=== PATIENT | female | born 1945 | race African-American/Black ===

== ENCOUNTER 2018-08-18 09:31 | Inpatient (IN) | payer OTHER ==
[~2018-08-18] VITALS: Ht 160 cm; Wt 83.2 kg
[2018-08-18 09:33] VITALS: BP 178/72
[2018-08-18] MEDS ORDERED: ZOVIRAX400 MG PO (09:42)
[2018-08-18] MEDS ORDERED: ASPIR 8181 MG PO (09:42)
[2018-08-18] MEDS ORDERED: TYLENOL EXTRA500 MG PO (09:42)
[2018-08-18 09:43] LABS: HEMATOCRIT 35.3 % (37.0-47.0); HEMOGLOBIN 11.4 gm/dL (12.0-15.0); MCH 25.8 pg (26.0-34.0); MCHC 32.4 g/dL (28.0-37.0); MCV 79.7 fL (80.0-100.0); PLATELET COUNT 175 thou/uL (150-400); RBC 4.43 mil/uL (4.20-5.00); RDW 20.8 % (10.5-14.5); WBC 4.4 thou/uL (4.0-11.0)
[2018-08-18] MEDS ORDERED: TUMS PO (09:43)
[2018-08-18] MEDS ORDERED: XANAX 0.5 MG0.5 MG PO (09:43)
[2018-08-18] MEDS ORDERED: KEFLEX500 M1 PO (09:43)
[2018-08-18] MEDS ORDERED: PULMICORT0.5 MG/22 INH (09:43)
[2018-08-18] MEDS ORDERED: VITAMIN D3400 UNIT PO (09:44)
[2018-08-18] MEDS ORDERED: CARDIZEM CD240 MG PO (09:44)
[2018-08-18] MEDS ORDERED: ZETIA10 MG PO (09:45)
[2018-08-18] MEDS ORDERED: COLACE100 MG PO (09:45)
[2018-08-18] MEDS ORDERED: NEXIUM40 MG PO (09:45)
[2018-08-18] MEDS ORDERED: ALLER-FEX180 MG PO (09:45)
[2018-08-18] MEDS ORDERED: HYDRALAZINE 5050 MG PO (09:46)
[2018-08-18] MEDS ORDERED: NORCO 5-325 TA1 EACH PO (09:46)
[2018-08-18] MEDS ORDERED: INCRUSE ELLI62.5 MCG INH (09:47)
[2018-08-18 09:50] LABS: BE(vivo) -2.3 mmol/L (-2 to +3); HCO3 21.5 mmol/L (22.0-26.0); PO2 99.1 mmHg (80.0-100.0); pH 7.419 (7.360-7.450); sO2 97.7 % (92.0-98.0)
[2018-08-18 09:56] LABS: CALCIUM 8.7 mg/dL (8.5-10.1); CREATININE 1.1 mg/dL (0.6-1.0); POTASSIUM 3.6 mmol/L (3.5-5.1)
[2018-08-18 10:10] LABS: ALBUMIN 3.6 g/dL (3.4-5.0); TOTAL BILIRUBIN 0.9 mg/dL (<0.1-1.0); TOTAL PROTEIN 7.9 g/dL (6.4-8.2); TROPONIN-I 0.19 ng/mL (<0.06)
[2018-08-18 10:56] LABS: PLATELET ESTIMATE NORMAL
[2018-08-18 10:57] LABS: ANISOCYTOSIS 1+
[2018-08-18] MEDS ORDERED: SYNTHROID88 MCG PO (11:23)
[2018-08-18] MEDS ORDERED: LETROZOLE2.5 MG PO (11:23)
[2018-08-18] MEDS ORDERED: LISINOPRIL2.5 MG PO (11:23)
[2018-08-18] MEDS ORDERED: GLUCOPHAGE XR500 MG PO (11:23)
[2018-08-18] MEDS ORDERED: MAGOX 400400 MG PO (11:23)
[2018-08-18] MEDS ORDERED: MS CONTIN15 MG PO (11:24)
[2018-08-18] MEDS ORDERED: SINGULAIR 10 MG10 M1 PO (11:24)
[2018-08-18] MEDS ORDERED: ONDANSETRON HCL4 M2 PO (11:25)
[2018-08-18] MEDS ORDERED: POTASSIUM20 PO (11:27)
[2018-08-18] MEDS ORDERED: ALDACTAZIDE 251 EAC1 PO (11:28)
[2018-08-18] MEDS ORDERED: JANUVIA100 MG PO (13:30)
[2018-08-18] MEDS ORDERED: REVLIMID15 MG PO (13:30)
[2018-08-18] MEDS ORDERED: PERIOGARD473 ML SWISH&SPIT (13:48)
[2018-08-18] MEDS ORDERED: XGEVA120 MG/1.7 SUBQ (13:49)
[2018-08-18] MEDS ORDERED: PROAIR HFA8.5 GM INH (13:51)
[2018-08-18 13:55] VITALS: BP 155/77
--- NOTE | 2018-08-18 14:10 | 2DMMODE ---
[facility] [place] [address] 2 D/M-MODE ECHOCARDIOGRAM Name: JAY CORTES Room #: 170-8 ADM IN M.R.#: [id number] ������������� Admission: 08/18/18 ������������� Attend Phys: Gopi Aguilar MD Discharge: ��� ������������� ��� Date of : 41 Date of Service: 08/18/18 1410 �� Report #: [id number] �������� ��������������������������������������������[id number] THIS REPORT FOR: //name// APPROVED REPORT Study performed: 08/18/2018 13:13:31 EXAM: Comprehensive 2D, Doppler, and color-flow Echocardiogram Patient Location: ER Room #: 8 Status: routine BSA: 1.93 HR: 96 bpm BP: 176/81 mmHg Rhythm: NSR Other Information Study Quality: Adequate Indications Congestive Heart Failure COPD Diabetes Hypertension/HDD 2D Dimensions IVC: 21.00 mm Volumes Left Atrial Volume (Systole) Single Plane 4CH: 22.10 mL Single Plane 2CH: 25.23 mL LA ESV Index: 14.00 mL/m2 Aortic Valve AoV Peak Gregory.: 1.53 m/s AO Peak Gr.: 9.30 mmHg LVOT Max P.62 mmHg LVOT Max V: 1.08 m/s Mitral Valve E/A Ratio: 0.7 MV Decel. Time: 376.23 ms MV E Max Gregory.: 0.75 m/s MV A Gregory.: 1.04 m/s MV PHT: 109.11 ms IVRT: 106.11 ms [facility] [address] [place] [address] 2 D/M-MODE ECHOCARDIOGRAM Name: JAY CORTES Room #: 170-8 ADM IN M.R.#: [id number] ������������� Admission: 08/18/18 ������������� Attend Phys: Gopi Aguilar MD Discharge: ��� ������������� ��� Date of : 41 Date of Service: 08/18/18 1410 �� Report #: [id number] �������� ��������������������������������������������[id number] Pulmonary Valve PV Peak Gregory.: 1.30 m/s PV Peak Gr.: 6.81 mmHg Pulmonary Vein P Vein S: 0.52 m/s P Vein A: 0.28 m/s P Vein D: 0.28 m/s P Vein A Dur.: 110.7 msec P Vein S/D Ratio: 1.86 Tricuspid Valve TR Peak Gregory.: 3.50 m/s TR Peak Gr.: 49.07 mmHg PA Pressure: 59.00 mmHg Left Ventricle The left ventricle is normal size. There is normal LV segmental wall motion. There is normal left ventricular wall thickness. The left ventricular systolic function is normal. The left ventricular ejection fraction is within the normal range. LVEF is 60-65%. Mild diastolic dysfunction is present (impaired relaxation pattern). Right Ventricle The right ventricle is normal size. The right ventricular systolic function is normal. Atria The left atrium size is normal. Right atrium is at the upper limits of normal. Aortic Valve The aortic valve is normal in structure. No aortic regurgitation is present. There is no aortic valvular stenosis. Mitral Valve The mitral valve is normal in structure. There is no mitral valve regurgitation noted. No evidence of mitral valve stenosis. Tricuspid Valve The tricuspid valve is normal in structure. There is mild tricuspid regurgitation. Estimated PAP 55 mmHg. There is moderate pulmonary hypertension. Pulmonic Valve The pulmonary valve is normal in structure. There is no pulmonic valvular regurgitation. [facility] [place] [address] 2 D/M-MODE ECHOCARDIOGRAM Name: JAY CORTES Room #: 170-8 ADM IN M.R.#: [id number] ������������� Admission: 08/18/18 ������������� Attend Phys: Gopi Aguilar MD Discharge: ��� ������������� ��� Date of : 41 Date of Service: 08/18/18 1410 �� Report #: [id number] �������� ��������������������������������������������[id number] Great Vessels The aortic root is normal in size. IVC is dilated and collapses >50% with inspiration. Pericardium There is no pericardial effusion. <Conclusion> The left ventricular systolic function is normal. There is normal LV segmental wall motion. LVEF is 60-65%. Mild diastolic dysfunction is present The aortic valve is normal in structure. No aortic regurgitation is present. The mitral valve is normal in structure. No mitral valve regurgitation noted. There is mild tricuspid regurgitation. Estimated pulmonary artery pressure of 55 mmHg. There is no pericardial effusion. ��������������������������������������������� <ELECTRONICALLY SIGNED> ���������������������������������������� By: Denzel Musa MD, [facility] ��������������������������������������������� 08/18/18 1410 1410 1410 Denzel Musa MD, [facility] /INF
[2018-08-18 14:23] VITALS: BP 126/78
[2018-08-18 15:29] VITALS: BP 151/78
--- NOTE | 2018-08-18 17:23 | EKG ---
[place] [address] [employer] [facility] [place] [address] ELECTROCARDIOGRAM REPORT Name: JAY CORTES Room #: 354-P ADM IN M.R.#: [id number] ������������������ Admission: 08/18/18 ������������������ Attend Phys: Gopi Aguilar MD Discharge: ������������������ Date of : 41 Report #: [id number] ����������������������������������������������������������������� [id number] THIS REPORT FOR: //name// [facility] ED Test Date: 2018-08-18 Test Time: 09:56:57 Pat Name: JAY CORTES Department: Room: 354 Gender: F [employer] Instructor: ZULMA : 1945 Requested By: Anahi Mcpherson Order Number: [id number] MD: Denzel Musa Measurements Intervals [place] Rate: 103 P: 52 PA: 149 QRS: 48 QRSD: 80 T: QT: 395 QTc: 517 Interpretive Statements Sinus tachycardia Nonspecific ST and T wave abnormality Prolonged QT interval Baseline wander in lead(s) V1 No previous ECG available for comparison Electronically Signed On 08-18-2018 17:23:07 CDT by Denzel Musa [email or web address] ��������������������������������������������� <ELECTRONICALLY SIGNED> ���������������������������������������� By: Denzel Musa MD, [facility] ��������������������������������������������� 08/18/18 1723 5 Denzel Musa MD, [facility] /EPI
[2018-08-18 17:34] LABS: BE(vivo) 0.6 mmol/L (-2 to +3); HCO3 24.5 mmol/L (22.0-26.0); pH 7.439 (7.360-7.450); sO2 97.4 % (92.0-98.0)
[2018-08-18 20:10] VITALS: BP 173/80
[2018-08-19 04:40] VITALS: BP 150/76
[2018-08-19 05:42] LABS: HEMATOCRIT 35.1 % (37.0-47.0); HEMOGLOBIN 11.1 gm/dL (12.0-15.0); MCH 25.3 pg (26.0-34.0); MCHC 31.6 g/dL (28.0-37.0); RBC 4.39 mil/uL (4.20-5.00); RDW 20.4 % (10.5-14.5); WBC 4.2 thou/uL (4.0-11.0)
[2018-08-19 05:53] LABS: CALCIUM 8.2 mg/dL (8.5-10.1); CREATININE 1.4 mg/dL (0.6-1.0); MAGNESIUM 1.7 mg/dL (1.8-2.4); POTASSIUM 4.1 mmol/L (3.5-5.1)
[2018-08-19 07:39] VITALS: BP 138/75
--- NOTE | 2018-08-19 08:13 | EKG ---
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 Out: IRIS : 1945 Requested By: Denzel Musa Order Number: [id number] MD: Jani Maldonado Measurements Intervals [place] Rate: 87 P: 60 DE: 132 QRS: 46 QRSD: 92 T: 64 QT: 411 QTc: 495 Interpretive Statements Sinus rhythm Borderline ST depression, anterolateral leads Baseline wander in lead(s) V4 Compared to ECG 08/18/2018 09:56:57 Sinus tachycardia no longer present ST (T wave) deviation still present Electronically Signed On 08-19-2018 8:12:52 CDT by Jani Maldonado [email or web address] ��������������������������������������������� <ELECTRONICALLY SIGNED> ���������������������������������������� By: Jani Maldonado MD ��������������������������������������������� 08/19/1812 5 5 Jani Maldonado MD /EPI
[2018-08-19 11:21] VITALS: BP 115/65
[2018-08-19 16:05] VITALS: BP 115/64
[2018-08-19 20:00] VITALS: BP 129/63
[2018-08-20 04:00] VITALS: BP 132/56
[2018-08-20 07:40] VITALS: BP 109/56
[2018-08-20 11:23] VITALS: BP 138/55
[2018-08-20 12:29] LABS: CALCIUM 8.8 mg/dL (8.5-10.1); CREATININE 1.4 mg/dL (0.6-1.0); POTASSIUM 3.9 mmol/L (3.5-5.1)
--- NOTE | 2018-08-20 15:28 | HC ---
[facility] [place] [address] CONSULTATION Name: JAY CORTES Room #: 354-P ADM IN M.R.#: [id number] Admission: 08/18/18 ������������������ Attend Phys: Gopi Aguilar MD Discharge: ������������������ Date of : 41 Report #: [id number] THIS REPORT FOR: //name// CC: Gopi Vargas DATE OF SERVICE: 08/19/2018 REFERRAL PHYSICIAN: Dr. Aguilar. REASON FOR REFERRAL: Dyspnea. HISTORY OF PRESENT ILLNESS: The patient is a 73-year-old female with history of COPD, presents to the ED with progressive dyspnea. A pulmonary consultation was requested. The patient states that she is normally followed by Dr. Roc Worrell for COPD. She is normally on 3 liters of O2 chronically. She normally goes to [facility] for her care. Because of the acuity of illness, she was brought to the [facility]. She was in her usual state of health until about 5 days prior to presentation. She noticed increasing dyspnea, nonproductive cough. With worsening symptoms, she called 911. She also states that she has been undergoing treatment for breast cancer, undergoing radiation therapy along with previous breast cancer. She also is being followed for multiple myeloma. Otherwise, denies any recent chest pain, hemoptysis, nausea, vomiting, diarrhea. PAST MEDICAL HISTORY: As mentioned above including COPD, breast cancer on the right and undergoing chemo and radiation therapy, history of multiple myeloma, history of heart failure, hypertension, diabetes mellitus, history of tobacco use, having stopped smoking few years ago. PAST SURGICAL HISTORY: Unremarkable. ALLERGIES: MULTIPLE INCLUDING AMLODIPINE, ASPIRIN, LIPITOR, DICLOFENAC, DOXYCYCLINE, IBUPROFEN, LATEX, LEVOFLOXACIN, PAMIDRONATE DISODIUM, PENICILLIN, ACTOS, BACTRIM, reaction not specified. HOME MEDICATIONS: Reviewed. This include aspirin, despite allergy notice; nebulized Pulmicort, hydralazine, mag oxide, metformin, MS Contin, Zofran, hydrochlorothiazide, Revlimid, Januvia, PerioGard, Xgeva, ProAir MDI, Tylenol, Zovirax, Xanax, Cardizem, Nexium, Zetia, fexofenadine, hydrocodone, Incruse Ellipta, letrozole, Synthroid, Zestril, Singulair, K-Dur. [address] [address] CONSULTATION Name: JAY CORTES Room #: 354-P [facility] IN M.R.#: [id number] Admission: 08/18/18 ������������������ Attend Phys: Gopi Aguilar MD Discharge: ������������������ Date of : 41 Report #: [id number] FAMILY HISTORY: Noncontributory. SOCIAL HISTORY: The patient has smoked in the past, but quit more than a year ago. REVIEW OF SYSTEMS: As mentioned above, otherwise 10-point system review negative. PHYSICAL EXAMINATION: GENERAL: She is awake, alert, appears mildly dyspneic, otherwise in no distress. VITAL SIGNS: Temperature is 98.4 degrees Fahrenheit, pulse is 80, respiratory rate is 18, blood pressure 115/65 mmHg, saturation is 98%. HEENT: Normocephalic and atraumatic. NECK: Supple, without lymphadenopathy or thyromegaly. CHEST: Breath sounds of good bilaterally with mild expiratory wheezes. CARDIOVASCULAR: Normal S1, S2. No murmurs or gallop. There is no JVD. There is no carotid bruit. Pulses are 2+/4+ bilaterally. ABDOMEN: Soft, nontender, no organomegaly or masses felt. GENITOURINARY: Deferred. RECTAL: Deferred. EXTREMITIES: There is no edema, cyanosis or clubbing. LABORATORY DATA: Chest x-ray shows mild interstitial infiltrates, no effusion seen. Procalcitonin level of 0.6. Echocardiogram shows normal LV function, normal ejection fraction. Pulmonary artery pressure measuring 55 mmHg, otherwise unremarkable. Influenza A and B swab is negative. Doppler ultrasound of the lower extremities was negative for DVT. Electrolytes normal except for creatinine 1.4. Sodium 138, potassium 4.1, chloride 102, CO2 24, BUN is 23. Liver enzymes unremarkable. WBC 4000, hemoglobin 11.1, arterial blood gas revealed pH 7.43, pCO2 at 37, pO2 of 94 on FiO2 40%. IMPRESSION: 1. Progressive dyspnea in this 73-year-old female. She has a history of chronic obstructive pulmonary disease along with history of heart failure. Chest x-ray shows mild increase in interstitial markings. Etiology likely related to exacerbation of chronic obstructive pulmonary disease. Heart failure is felt to be less likely. 2. Chronic obstructive pulmonary disease exacerbation, severity unknown. 3. History of breast cancer, status post chemotherapy. She apparently had recent radiation therapy. We need to consider possible radiation-induced lung injury as a possible cause for dyspnea. 4. Pulmonary hypertension due to pulmonary impairment, group 3. 5. Hypertension. 6. Diabetes mellitus. [facility] [address] [place] [address] CONSULTATION Name: JAY CORTES Room #: 033-P ADM IN M.R.#: [id number] Admission: 08/18/18 ������������������ Attend Phys: Gopi Aguilar MD Discharge: ������������������ Date of : 41 Report #: [id number] 7. Hypothyroidism. RECOMMENDATION: Would suggest bronchodilators, broad-spectrum antibiotics along with corticosteroids. Wean O2 for saturation 90%. DVT and GI prophylaxis recommended. Thank you for this consultation. ��������������������������������������������� <ELECTRONICALLY SIGNED> ���������������������������������������� By: Zachary Bro MD ��������������������������������������������� 08/20/18 1528 [id number] [id number] Zachary Bro MD /nt
[2018-08-20 15:48] VITALS: BP 127/57
--- NOTE | 2018-08-20 19:43 | HC ---
[facility] [place] [address] CONSULTATION Name: JAY CORTES Room #: 354-P [facility] IN M.R.#: [id number] Admission: 08/18/18 ������������������ Attend Phys: Gopi Aguilar MD Discharge: ������������������ Date of : 41 Report #: [id number] THIS REPORT FOR: //name// CC: Gopi Vargas DATE OF SERVICE: 08/19/2018 INFECTIOUS DISEASES CONSULTATION REASON FOR CONSULTATION: I was asked to evaluate concerning lower respiratory tract infection in the setting of multiple myeloma. HISTORY OF PRESENT ILLNESS: The patient is a 73-year-old admitted on 08/18/2018 with progressive shortness of breath over 1 week. Although initial evaluation reports that she was having fever and chills at home, she denies such. She has had minimal cough. She has had no significant sputum production. She just noted increased peripheral edema along with shortness of breath. She remains on chemotherapy for multiple myeloma, which she states is in remission. She recently completed a course of radiation for left breast cancer. She is unclear as to the state of her disease at this point in time. She has had no travel. She denies any other HIV risk factors. Overall, she states feeling better today than prior to her admission. The maximum temperature here has been 99.9 degrees. She has been treated with doxycycline. ALLERGIES: THE PATIENT REPORTS MULTIPLE DRUG ALLERGIES INCLUDING SULFA, LEVAQUIN, PENICILLIN, DOXYCYCLINE, ALTHOUGH THE PATIENT IS TOLERATING DOXYCYCLINE AT THIS TIME, PREVIOUSLY REPORTED LOOSE STOOLS. SHE DOES TOLERATE CEFTRIAXONE. ALSO, ALLERGIC TO PAMIDRONATE, LATEX, ASPIRIN, ATORVASTATIN, DICLOFENAC, IBUPROFEN, ACTOS, AMLODIPINE. PAST MEDICAL HISTORY: Multiple myeloma, breast cancer, diabetes, hypertension, COPD, obstructive sleep apnea. FAMILY HISTORY: Noncontributory. SOCIAL HISTORY: Past smoker, no significant alcohol intake. REVIEW OF SYSTEMS: Ten-point review was negative other than what has been described above. PHYSICAL EXAMINATION: VITAL SIGNS: She is afebrile, hemodynamically stable. She is alert and cooperative and pleasant, in no acute distress. She is on oxygen at 4 liters per nasal cannula. She was obese. GENERAL: She was lying essentially flat in bed. [facility] [address] [place] [address] CONSULTATION Name: JAY CORTES Room #: 354-P [facility] IN M.R.#: [id number] Admission: 08/18/18 ������������������ Attend Phys: Gopi Aguilar MD Discharge: ������������������ Date of : 43 Report #: [id number] HEENT: Eyes without scleral icterus. Mouth without mucositis. NECK: Supple, with no thyromegaly or mass. SKIN: Without rash or decubitus. No palpable adenopathy. LUNGS: Few crackles in the bases bilaterally, no consolidation. HEART: Regular, without murmur, gallop or rub. ABDOMEN: Obese, soft and nontender with no hepatosplenomegaly or mass appreciated. GENITAL: Not performed. RECTAL: Not performed. EXTREMITIES: Obese. She had no cyanosis, clubbing or edema in the upper extremities, but in the lower extremities, she had 1+ edema in the lower legs bilaterally. NEUROLOGIC: Cranial nerves were intact and strength in her upper and lower extremities was normal with a normal sensation to touch. LABORATORY STUDIES: Blood cultures are negative. Creatinine is 1.4, alkaline phosphatase 139. Liver function test normal. Echocardiogram showed 60-65% EF. Procalcitonin was 0.6. BNP 1459. Chest x-ray with bibasilar atelectasis in the right. IMPRESSION: A 73-year-old, in remission on maintenance therapy of multiple myeloma, with progressive shortness of breath, suspecting chronic obstructive pulmonary disease exacerbation with a component of congestive heart failure. Also, consider viral respiratory tract infection or possible atypical bronchitis, but cough has not been a major factor in this setting. She is relatively immunosuppressed on her current treatment. She does have multiple drug allergies and intolerances. RECOMMENDATION: We will obtain a viral respiratory panel. Start Tamiflu and continue with doxycycline. Continue with treatment for congestive heart failure and chronic obstructive pulmonary disease exacerbation. ��������������������������������������������� <ELECTRONICALLY SIGNED> ���������������������������������������� By: Felipe Esquivel MD ��������������������������������������������� 08/20/18 1943 [id number] Felipe Esquivel MD /nt
[2018-08-20 20:00] VITALS: BP 139/55
[2018-08-21 04:00] VITALS: BP 136/66
[2018-08-21 04:42] LABS: CALCIUM 8.9 mg/dL (8.5-10.1); CREATININE 1.3 mg/dL (0.6-1.0); POTASSIUM 4.7 mmol/L (3.5-5.1)
[2018-08-21 07:25] VITALS: BP 153/62
[2018-08-21] MEDS ORDERED: OSELB75 PO (11:30)
[2018-08-21 11:35] VITALS: BP 143/72
[2018-08-21] MEDS ORDERED: DOXYCYCLINE 10100 M1 PO (11:47)
[2018-08-23 10:09] LABS: ADENOVIRUS Negative (Negative); INFLUENZA A Negative (Negative); INFLUENZA B Negative (Negative); METAPNEUMOVIRUS Negative (Negative); PARAINFLUENZA 1 Negative (Negative); PARAINFLUENZA 2 Negative (Negative); PARAINFLUENZA 3 Positive (Negative); RHINOVIRUS Negative (Negative); RSV A Negative (Negative); RSV B Negative (Negative)
== END 2018-08-21 16:25 | DRG 871 ==
LOC: ER 09:31 → EROBS 11:23 → 3W 11:23 → ENTRNSPT 08-21 16:11 → 3W 08-21 16:25
PROVIDERS: Internal Medicine; Internal Medicine Pulmonary Disease; Specialist; Student in an Organized Health Care Education/Training Program; ADMIT Hospitalist
PROC: 5A09357 Assistance with Respiratory Ventilation, Less than 24 Consecutive Hours, Continuous Positive Airway Pressure (ICD-10-PCS; principal; 2018-08-18)
PROC: 5A09357 Assistance with Respiratory Ventilation, Less than 24 Consecutive Hours, Continuous Positive Airway Pressure (ICD-10-PCS; 2018-08-19)
PROC: 5A09357 Assistance with Respiratory Ventilation, Less than 24 Consecutive Hours, Continuous Positive Airway Pressure (ICD-10-PCS; 2018-08-20)
DX: A41.9 Sepsis, unspecified organism (principal); J96.21 Acute and chronic respiratory failure with hypoxia; I50.33 Acute on chronic diastolic (congestive) heart failure; J44.1 Chronic obstructive pulmonary disease with (acute) exacerbation; C90.01 Multiple myeloma in remission; J44.0 Chronic obstructive pulmonary disease with (acute) lower respiratory infection; E87.70 Fluid overload, unspecified; E11.9 Type 2 diabetes mellitus without complications; G47.33 Obstructive sleep apnea (adult) (pediatric); I27.20 Pulmonary hypertension, unspecified; I11.0 Hypertensive heart disease with heart failure; E03.9 Hypothyroidism, unspecified; J20.9 Acute bronchitis, unspecified; Z60.2 Problems related to living alone; Z88.0 Allergy status to penicillin; Z88.2 Allergy status to sulfonamides; Z88.8 Allergy status to other drugs, medicaments and biological substances; Z88.6 Allergy status to analgesic agent; Z88.1 Allergy status to other antibiotic agents; Z91.040 Latex allergy status; Z87.891 Personal history of nicotine dependence; Z85.3 Personal history of malignant neoplasm of breast; Z92.21 Personal history of antineoplastic chemotherapy
CPT/HCPCS: 10879

== ENCOUNTER 2018-08-21 12:00 | Inpatient (IN) | payer OTHER ==
[~2018-08-21] VITALS: Ht 154.9 cm; Wt 85.3 kg
--- NOTE | ~2018-08-21 | PLAN ---
[facility] [place] [address] REHAB UNIT PLAN OF CARE Name: JAY CORTES Room #: 506-1 ADM IN M.R.#: [id number] Admission: 08/21/18 ������������������ Attend Phys: Radames Solitario MD Discharge: ������������������ Date of : 43 Report #: [id number] THIS REPORT FOR: //name// CC: Radames Vargas DATE OF SERVICE: 08/24/2018 OVERALL PLAN OF CARE The overall plan of care is based on the preadmission screen, post-admission physician evaluation and information garnered from therapy assessments. 1. Estimated length of stay is probably going to be 10 days to 2 weeks. We will team with the rehabilitation team tomorrow and further assess. 2. Medical prognosis is reasonably good. 3. Anticipated interventions includes the interdisciplinary acute inpatient rehabilitation program with PT and OT, rehab nursing assisting regarding medication management, skin care prophylaxis, bowel and bladder issues and nursing education. territory manager will be assisting as well as the rehabilitation team and the wine consultant physicians. 4. Anticipated functional outcomes would be for the patient to become modified independent with transfers, mobility and ADLs at a walker level, so that she can return back to the home setting. 5. Discharge destination would be back to her independent living apartment where she does have a caregiver or at least an syrup mixer assistant that helps with IADLs and meal prep 2 times a week. She may need more initial assistance. 6. Expected therapy by discipline includes PT and OT 1-1/2 hours per day each five days a week throughout the duration of the acute inpatient rehabilitation stay. ��������������������������������������������� ���������������������������������������� By: ��������������������������������������������� [id number] Radames Solitario MD /LING
--- NOTE | ~2018-08-21 | H ---
[facility] [place] [address] HISTORY AND PHYSICAL Name: JAY CORTES Room #: 506-1 ADM IN M.R.#: [id number] Admission: 08/21/18 ������������������ Attend Phys: Radames Solitario MD Discharge: ������������������ Date of : 41 Report #: [id number] THIS REPORT FOR: //name// CC: Radames Vargas DATE OF SERVICE: 08/21/2018 HISTORY AND PHYSICAL/POST ADMISSION PHYSICIAN EVALUATION: HISTORY OF PRESENT ILLNESS: The patient is a 73-year-old white female who was originally admitted to [facility] on 08/18/2018 and increased shortness of breath, diagnosed with acute respiratory failure, acute exacerbation of COPD, acute exacerbation of congestive heart failure. She did have a COPD exacerbation with bronchitis. She has a history of multiple myeloma, on maintenance chemotherapy, congestive heart failure. The patient had a flu swab, which was negative that is being treated with Tamiflu prophylactically and was placed on IV steroids and IV doxycycline. She is followed closely by Infectious Disease. She is noted to have a significant decline in her overall functional mobility and has been admitted now for acute in-hospital inpatient rehabilitation. PAST MEDICAL HISTORY: Includes multiple myeloma, history of diabetes, hypertension and COPD. She has had breast cancer, status post radiation. MEDICATIONS: Please see the full medication listing. This includes vitamins, herbals, and supplements. ALLERGIES: She has multiple allergies ____. 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 SOCIAL HISTORY: Lives in an independent living apartment with a caregiver 2-1/2 hours 2 times a week to assist with cleaning and laundry. She was independent with ADLs and simple meal prep. She has no stairs. She has rollator walker. Her last fall was 07/27. She wears nasal cannula O2 at home. She has an involved son and they are looking into assisted living options. HABITS: Past tobacco abuse, quit greater than a year ago. No history of alcohol abuse or recreational drug usage. REVIEW OF SYSTEMS: Did not offer any current complaints of chest pain, shortness of breath, abdominal discomfort. No complaints of headache. No fever or chills. No bowel or bladder changes. No focal extremity pain complaints. Complains of generalized weakness. PHYSICAL EXAMINATION: [facility] [address] [place] [address] HISTORY AND PHYSICAL Name: JAY CORTES Room #: 506-1 ADM IN M.R.#: [id number] Admission: 08/21/18 ������������������ Attend Phys: Radames Solitario MD Discharge: ������������������ Date of : 41 Report #: [id number] GENERAL: She is a pleasant 73-year-old female, in no obvious distress. VITAL SIGNS: Last recorded temperature 98.4, pulse 74, respirations 18, blood pressure 148/63. NEUROLOGIC: The patient is alert, follows commands without difficulty. She is on 2 liters nasal cannula. HEENT: Facies are symmetric. CHEST: Some diffuse decreased breath sounds throughout. CARDIOVASCULAR: Sounded regular rate and rhythm. ABDOMEN: Bowel sounds positive, nontender. GENITOURINARY AND RECTAL: Deferred. She does have functional range of motion of both upper extremities. Strength is grade 3+ to 4-/5. DTRs are trace to 1. LOWER EXTREMITIES: No focal calf swelling, functional range of motion with strength grade 3+ to 4-/5. EXTREMITIES: She has trace pedal edema, supervision for basic bed mobility. ASSESSMENT: This is a 73-year-old white female with the following problem list: 1. Cardiopulmonary rehabilitation. 2. Acute exacerbation of congestive heart failure. 3. Acute respiratory failure. 4. Acute exacerbation of chronic obstructive pulmonary disease. 5. Breast cancer. 6. Multiple myeloma. 7. Hypertension. 8. Type 2 diabetes mellitus. 9. Hypothyroidism. PLAN: The patient is admitted for acute in-hospital inpatient rehabilitation. From a postadmission physician evaluation perspective, there are no relevant changes since the preadmission screening. Please see the above review of prior and current medical and functional conditions, comorbidities. Please see the patient's previous and current functional status. As far as risk of complications, the patient has multiple medical comorbidities as noted above. Initial plan of care involves the interdisciplinary acute inpatient rehabilitation program, goal of maximizing the patient's functional independence, so she can hopefully return back to her prior living situation. Measurable functional goals would be for the patient to become modified independent with transfers, mobility, ADLs, so she can hopefully return back to her prior living situation. Prognosis is reasonably good with estimated length of stay probably 10 days to 2 weeks. Potential barriers would include her multiple medical comorbidities and decreased functional status. The patient meets diagnostic criteria for an acute in-hospital inpatient rehabilitation stay. She meets medical necessity criteria. We will have the [address] [address] HISTORY AND PHYSICAL Name: JAY CORTES Room #: 506-1 ADM IN M.R.#: [id number] Admission: 08/21/18 ������������������ Attend Phys: Radames Solitario MD Discharge: ������������������ Date of : 41 Report #: [id number] [facility] consultant physicians involved. She does have tolerance for therapies and has appropriate discharge goals back to the home setting. ��������������������������������������������� ���������������������������������������� By: ��������������������������������������������� [id number] Radames Solitario MD /nt
[~2018-08-21 12:00] MED LIST: ALDACTAZIDE 251 EAC1 PO; ALLER-FEX180 MG PO; ASPIR 8181 MG PO; CARDIZEM CD240 MG PO; COLACE100 MG PO; DOXYCYCLINE 10100 M1 PO; GLUCOPHAGE XR500 MG PO; HYDRALAZINE 5050 MG PO; INCRUSE ELLI62.5 MCG INH; JANUVIA100 MG PO; KEFLEX500 M1 PO; LETROZOLE2.5 MG PO; LISINOPRIL2.5 MG PO; MAGOX 400400 MG PO; MS CONTIN15 MG PO; NEXIUM40 MG PO; NORCO 5-325 TA1 EACH PO; ONDANSETRON HCL4 M2 PO; OSELB75 PO; PERIOGARD473 ML SWISH&SPIT; POTASSIUM20 PO; PROAIR HFA8.5 GM INH; PULMICORT0.5 MG/22 INH; REVLIMID15 MG PO; SINGULAIR 10 MG10 M1 PO; SYNTHROID88 MCG PO; TUMS PO; TYLENOL EXTRA500 MG PO; VITAMIN D3400 UNIT PO; XANAX 0.5 MG0.5 MG PO; XGEVA120 MG/1.7 SUBQ; ZETIA10 MG PO; ZOVIRAX400 MG PO
--- NOTE | 2018-08-21 19:18 | NUR ---
ASSUMED CARE AT 1600, NEW ADMIT FROM 3W. ADMISSION AND SHIFT ASSESSMENT DONE. MED REC ABD ALLERGIES DONE. ON 2L NASAL CANULA. FALL PRECAUTIONS IN PLACE, BED AND CHAIR ALARM ON. LAST BM 08/20. WILL CONTINUE TO ASSESS AND ASSIST WITH ADLs NEEDED.
[2018-08-21 19:55] VITALS: BP 148/63
[2018-08-22 04:25] LABS: HEMATOCRIT 29.4 % (37.0-47.0); HEMOGLOBIN 9.5 gm/dL (12.0-15.0); MCH 25.9 pg (26.0-34.0); MCHC 32.4 g/dL (28.0-37.0); MCV 79.9 fL (80.0-100.0); RBC 3.68 mil/uL (4.20-5.00); RDW 20.7 % (10.5-14.5); WBC 3.8 thou/uL (4.0-11.0)
--- NOTE | 2018-08-22 04:27 | NUR ---
ASSUMED CARE OF PT AT 1915. PT ALERT AND ORIENTED X4. DENIES PAIN OR NAUSEA, C/O DYPSNEA WITH EXERTION. BIPAP PLACED AT HS BY RESP THERAPY. CONTINUOUS SAT MONITOR IN PLACE. HAS APPEARED TO BE SLEEPING WHEN CHECKED ON HOURLY ROUNDS. BED ALARM ON.
[2018-08-22 04:37] LABS: CALCIUM 8.7 mg/dL (8.5-10.1); CREATININE 1.2 mg/dL (0.6-1.0); POTASSIUM 4.9 mmol/L (3.5-5.1)
[2018-08-22 07:30] VITALS: BP 151/55
[2018-08-22 15:26] VITALS: BP 128/59
--- NOTE | 2018-08-22 15:49 | NUR ---
ASSUMED CARE OF PT AT 0715. REPORTS SLEPT GOOD. PT ALERT AND ORIENTED X4. ABLE TO VOICE HER NEEDS. DENIES PAIN OR NAUSEA, C/O DYPSNEA WITH EXERTION. BIPAP AT NIGHT. SAT 98% ON 2L. REASSESSMENT PER CHART. LUNG SOUNDS COARSE, CONTINUE TO BE ON ABT AND BREATHING TX. SKIN DRY AND INTACT. HAS 1+ EDEMA BILATERAL FEET. HAD BM NOW. ENCOURAGED PT TO DO DEEP BREATHING. TAKES MEDS WHOLE.UP WITH CGA WITH A WALKER/GB/CGA. UP TO DINNING ROOM FOR MEALS. HAS GOOD SPIRIT AND SELF MOTIVATION. OFFERED SUPPORTIVE CARE. HER GOALS TO GET BETTER. FALL PRECAUTION IN PLACE, CALL LIGHT WITHIN REACH. CONTINUE TO MONITOR. CHECK FREQUENTLY FOR NEEDS AND SAFETY.
[2018-08-22 21:36] VITALS: BP 132/54
--- NOTE | 2018-08-23 02:15 | NUR ---
assumed care at approx 1900 evening 08/22. pt alert and oriented x4, pleasant and cooperative. pt took hs meds with water tolerating well. pt up to bathroom with 1 assist with walker. 02 at 2l per n/c and pt presently wearing bipap appears to be sleeping soundly with hourly rounding checks. bed alarm on and call light in reach. will continue to monitor.
[2018-08-23 06:30] VITALS: BP 122/44
[2018-08-23 07:20] VITALS: BP 105/51
--- NOTE | 2018-08-24 03:48 | NUR ---
PT AMBULATING TO BATHROOM WITH GAIT BELT, WALKER AND ASSIST X1 AND IS TOLERATING FAIR. DENIES PAIN. RESTING COMFORTABLY. NO NEEDS VOICED. CALL LIGHT WITHIN REACH. WILL CONTINUE TO PROVIDE FREQUENT OBSERVATION.
[2018-08-24 08:30] VITALS: BP 120/40
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
--- NOTE | 2018-08-24 10:40 | NUR ---
ASSUMED CARE OF PT AT 0715. OT ASSISTED PT WITH SHOWER THIS AM. REPORTS SLEPT GOOD. PT ALERT AND ORIENTED X4. ABLE TO VOICE HER NEEDS. DENIES PAIN. VSS SAT 98% ON 2L B/P 126/40, HR 60, ENCOURAGED PT TO DRINK MORE FLUID AND DEEP BREATHING. DENIES COUGH. REASSESSMENT PER CHART. LUNG SOUNDS COARSE, CONTINUE TO BE ON ABT AND BREATHING TX. SKIN DRY AND INTACT. HAS 1+ EDEMA BILATERAL FEET. UP WITH CGA WITH A WALKER/GB/CGA. UP TO DINNING ROOM FOR MEALS. HAS GOOD SPIRIT AND SELF MOTIVATION. OFFERED SUPPORTIVE CARE. HER GOALS TO GET BETTER. PT IS WALKING WITH PHYSICAL THERAPIST NOW FALL PRECAUTION IN PLACE, CALL LIGHT WITHIN REACH. CONTINUE TO MONITOR. CHECK FREQUENTLY FOR NEEDS AND SAFETY. PT WILL START ON HER CHEMO THERAPY MED AGAIN TOMORROW. DISCUSSED PLAN WITH L[facility] AND OBTAIN ORDER FOR HOME MED. WILL CONTINUE TO MONITOR.
[2018-08-24 14:00] VITALS: BP 91/66
[2018-08-24 19:32] VITALS: BP 112/45
--- NOTE | 2018-08-25 04:08 | NUR ---
ASSUMED CARE FROM PREVIOUS SHIFT PT UP SEVERAL TIME TO BATHROOM GAIT STAEADY WITH WALKER , C/O ANKLE AND LEG PAIN TYLENOL PO GIVEN PT RESTE WELL THROUGOUT HOURLY ROUNDS, CPAP ON RESP EASY NON-LARBORED.
[2018-08-25 08:01] VITALS: BP 116/50
--- NOTE | 2018-08-25 11:43 | NUR ---
ASSUMED CARE OF PT AT 0715. REPORTS SLEPT GOOD. PT ALERT AND ORIENTED X4. ABLE TO VOICE HER NEEDS. DENIES PAIN. VSS SAT 98% ON 2L FINISHED HER DOXYCYCLINE, TAMIFLU. REPORT BREATHING IS GETTING BETTER. B/P 115/50, HR 60, ENCOURAGED PT TO DRINK MORE FLUID AND DEEP BREATHING.REASSESSMENT PER CHART. SKIN DRY AND INTACT. HAS 1+ EDEMA BILATERAL FEET. UP WITH CGA WITH A WALKER/GB/CGA. UP TO DINNING ROOM FOR BREAKFAST. HAS GOOD SPIRIT AND SELF MOTIVATION. OFFERED SUPPORTIVE CARE. HER GOALS TO GET BETTER. FALL PRECAUTION IN PLACE, CALL LIGHT WITHIN REACH. CONTINUE TO MONITOR. CHECK FREQUENTLY FOR NEEDS AND SAFETY. WILL CONTINUE TO MONITOR.
--- NOTE | 2018-08-25 12:20 | NUR ---
team meeting, recommendation : dc 22nd home with hh ( pt,ot,nursing).
[2018-08-25 20:00] VITALS: BP 123/70
--- NOTE | 2018-08-26 02:19 | NUR ---
ASSUMED CARE OF PT AT 1915. PT ALERT AND ORIENTED X4. OXYGEN ON AT 2 LITERS BY NASAL CANNULAE, CPAP PLACED WITH CONT SAT MONITOR AT HS. PT DENIES PAIN, NAUSEA OR DYPSNEA. AMBULATES TO BATHROOM WITH STANDBY ASSIST USING GAIT BELT AND WALKER. HAS APPEARED TO BE SLEEPING WHEN CHECKED ON HOURLY ROUNDS. FALL PRECAUTIONS IN PLACE.
[2018-08-26 08:52] VITALS: BP 117/34
--- NOTE | 2018-08-26 09:39 | NUR ---
ASSUMED CARE AT 0700. PATIENT IS ALERT AND ORIENTED X4. PATIENT IS PLEASANT AND COOPERATIVE. PATIENT SANZ'S, CAN PATCHER ARE EQUAL. LUNGS ARE CLEAR AND DEMINISHED WITH OCCASIONAL EXP WHEEZE. PATIENT REMAINS ON RESPIRATORY TX. PATIENT IS ON 02 AT 2L PER N/C. PATIENT IS UP TO DINING ROOM FOR MEALS. FALL AND SAFETY PROTOCOLS IN PLACE. DENIES PAIN AT THIS TIME. PATIENT IS ON SCED PAIN MED Q 12 HOURS FOR HER CANCER. PATIENT RESTARTED ORAL CHEMO TODAY. ABD IS SOFT WITH BSX4. UP TO THE BATHROOM WITH WALKER AND GAIT BELT WITH SBA TO VOID BARNEY COLORED URINE. CONTINUES TO PROGRESS TOWARDS D/C GOALS ON FRIDAY. WILL CONTINUE TO MONITER.
--- NOTE | 2018-08-26 10:17 | NUR ---
visited with pt rt dcp hh for and list choices provided " oh i am going to stick with [facility] , use now. i left my son know about discharge and he will come up today to visit before he goes to work"/mary. arndt team to send [facility]
[2018-08-26 10:21] VITALS: BP 117/34
--- NOTE | 2018-08-26 12:27 | NUR ---
FAXED REFERRAL TO [facility] SPOKE WITH JADA IN ADM. SHE RECEIVED AND REVIEWED AND WILL ACCEPT PT. AT DISCHARGE. ANTICIPATE DC 08/28. DCP TO FOLLOW.
--- NOTE | 2018-08-26 14:42 | NUR ---
Patient participated in community reintegration on 08/26/18 with Physical Therapy. Refer to documentation by PT.
[2018-08-26 20:48] VITALS: BP 129/51
--- NOTE | 2018-08-27 04:20 | NUR ---
ASSESSMENT: PT REMAIN ALERT AND ORIENT TIMES FOUR. UP TO BR WITH MOD INDEP, GB AND WALKER. STEADY GAIT. ON 2 LITERS OF 02. PT STATE THAT SHE WAS TOLD THAT SHE WAS DX WITH CHF -VS- ACUTE EXAC COPD WITH REPIRATORY FAILURE. BOTH SYMPTOMS WERE EXPLAINED TO THE PT AND SHE DID UNDERSTAND THE EXPLANTION. PT LIKES TO TALK WHICH MAKES HER TIME COMSUMING. DID HAVE A BM THIS SHIFT, MODERATE, BROWN AND FORMED. HYDRALAZINE HELD THIS HS. CPAP APPLIED PER RT AND LUNGS SOUNDS ARE COURSE AND DIMINISHED IN THE BASES. SLOW PROGRESS TOWARDS DC GOALS., WILL CONTINUE TO MONITOR.
--- NOTE | 2018-08-27 08:02 | NUR ---
ASSUMED CARE AT 0700. PATIENT IS ALERT AND ORIENTEDX4. PATIENT SANZ'S. HORSE EXERCISER ARE EQUAL. LUNGS ARE COARSE AND DEMINISHED. PATIENT REMAINS ON 02 AT 2L PER N/C. PATIENT CONTINUES ON RESPIRATORY TX. PATIENT IS UP TO THE BATHROOM WITH ASSIST OF 1 STAFF, GAIT BELT AND WALKER. FALL AND SAFETY PROTOCOLS IN PLACE. DENIES PAIN AT THIS TIME. WILL CONTINUE TO MONITER.
[2018-08-27 19:22] VITALS: BP 131/81
--- NOTE | 2018-08-28 | NUR ---
PT ASSESSMENT COMPLETED AND VSS. MEDS GIVEN ORDERED AND WELL TOLERATED. MOD I IN ROOM. STEADY. SLEEPING WELL. WILL CONTINUE TO MONITOR FREQUENTLY.
[2018-08-28 07:51] VITALS: BP 120/39
[2018-08-28 08:36] VITALS: BP 135/48
[2018-08-28] MEDS ORDERED: PROBIOTIC1 EAC1 PO (09:05)
[2018-08-28] MEDS ORDERED: DILTIAZEM 24HR180 M1 PO (09:05)
[2018-08-28] MEDS ORDERED: HYDRALAZINE 10M10 MG PO (09:05)
[2018-08-28] MEDS ORDERED: PROAIR HFA8.5 GM INH (09:05)
[2018-08-28 12:19] VITALS: BP 117/34
--- NOTE | 2018-08-28 12:24 | NUR ---
PT. DISCHARGING TODAY TO HOME WITH [facility] . FAXED DC ORDERS/SUMMARY TO MARÍA ELENA IN ADM. WILL NOTIFY PT. OF TIME OF VISITS.
--- NOTE | 2018-08-28 16:03 | NUR ---
ASSUMED CARE AT APPROX 0715. PATIENT A/O X4. REPORTS RELIEF OF PAIN AT REST WITH TYLENOL AND SCHEDULED NARCOTIC. ABLE TO AMBULATE AROUND ROOM WITH WALKER AND O2, PER MOD I ORDERS. AM MEDS ADMINISTERED PER ORDERS. DISCHARGE ORDERS RECEIVED. D/C SUMMARY AND H&P FAXED TO PATIENT'S ONCOLOGIST, ATTEMPTED MULTIPLE TIMES TO FAX DOCUMENTS TO PATIENT'S PCP, ATTEMPTS UNSUCCESSFUL. HOME MEDICATION RETURNED TO PATIENT. CHANGES IN MEDICATION ORDERS REVIEWED WITH PATIENT AND HER SON. SCRIPTS AND MED INFO SHEETS PROVIDED. PATIENT'S BP CHECKED AT APPROX 1400, PER PARAMETERS PATIENT CORRECTLY VERBALIZED SHE WOULD NOT TAKE HYDRALAZINE, PATIENT REPORTS HAVING A HOME BP MONITOR CUFF. PATIENT AND HER SON STATED THEIR QUESTIONS WERE ANSWERED. CONSENTS SIGNED. PATIENT LEFT UNIT WITH HER BELONGINGS APPROX 1410.
--- NOTE | 2018-08-29 15:50 | HC ---
[facility] [place] [address] CONSULTATION Name: JAY CORTES Room #: 506-1 [facility] IN M.R.#: [id number] Admission: 08/21/18 ������������������ Attend Phys: Radames Solitario MD Discharge: 08/28/18 ������������������ Date of : 41 Report #: [id number] THIS REPORT FOR: //name// CC: Radames Vargas NEUROBEHAVIORAL STATUS EXAM: ATTENDING PHYSICIAN: Radames Solitario MD. COPY READER: Dakota Carlos, PhD. CLINICAL PRESENTATION: The patient is a 73-year-old female admitted to the [facility] on 08/18/2018 with shortness of breath and diagnosis of acute respiratory failure, acute exacerbation of COPD, acute exacerbation of congestive heart failure. The patient carries a diagnosis of multiple myeloma, and is on maintenance chemotherapy. Her diagnoses on admission to rehab include cardiopulmonary rehabilitation, acute exacerbation of congestive heart failure, acute respiratory failure, acute exacerbation of COPD, breast cancer, multiple myeloma, hypertension, type 2 diabetes mellitus and hypothyroidism. A complete description of her medical condition and history can be found in her medical record. Neuropsychological consultation was requested to provide assistance in the assessment of cognitive and emotional status and to provide recommendations and services. Prior to this most recent admission, she was living alone in her own home. She has one child. Her social support is limited. 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 The patient is . She has one brother and one sister. She does not report a history of treatment for mental disorder or alcohol/drug abuse. She also reports having been independent with instrumental activities of daily living prior to this most recent medical event. TECHNIQUES UTILIZED: Clinical interview, review of medical records, staff consultation and behavioral observation, mini mental status exam 2 standard version and clock drawing. EXAMINATION FINDINGS: The patient was alert and cooperative with the assessment. There is no evidence of aphasia. Her thoughts are logical and goal oriented. There is no evidence of thought disorder. She does not report auditory or visual hallucinations. There is no suicidal ideation. The patient does report feeling depressed and anxious. Her appetite is reduced, energy level is poor and she reports experiencing trouble with her memory. Sleep is reported as within normal limits. Her performance on the MMSE 2 brief version was in the borderline range with a T [facility] [address] [place] [address] CONSULTATION Name: JAY CORTES Room #: 506-1 [facility] IN .R.#: [id number] Admission: 08/21/18 ������������������ Attend Phys: Radames Solitario MD Discharge: 08/28/18 ������������������ Date of : 41 Report #: [id number] score of 29 and percentile rank of 2. She was 3/3 for initial registration, 4/5 for orientation to time, 5/[address] and 0/3 for immediate recall of 3 items after a brief time delay and distraction. Her performance on the MMSE 2 standard version improved to a raw score of 22/30, T score of 31 and percentile rank of 3. She was 2/5 for serial sevens, 2/2 for naming, 1/1 for repetition. Auditory comprehension, reading and ability to write a sentence were within normal limits. However, the patient had difficulty in copying a simple geometric design. Her performance in clock drawing was within normal limits suggesting satisfactory functioning of executive functioning. The patient is presenting with deficits primarily in memory and sustained concentration. This type of presentation can suggest a mild deficit primarily in temporal networks that may be the result of hypoxia. Additionally, depression could be contributing to her variability in cognition. DIAGNOSTIC IMPRESSION: Mild neurocognitive disorder, unspecified, without behavior disorder. Unspecified anxiety disorder with depression. RECOMMENDATIONS: The patient may benefit from the use of an antidepressant medication. Verbal praise and complements about her participation in therapies along with emphasizing her strengths and resources will also help in overall adjustment. Social support is reduced and that should benefit from improved support upon discharge. Consider the use of compensatory strategies to assist in the management of memory. Follow up neuropsychological testing will help clarify cognitive functioning. Thank you very much for allowing me to provide the consultation on this patient. ��������������������������������������������� <ELECTRONICALLY SIGNED> ���������������������������������������� By: Dakota Carlos, PhD ��������������������������������������������� 08/29/18 1550 [id number] Dakota Carlos, PhD /nt
== END 2018-08-28 14:14 | disposition home health service (06) | DRG 291 ==
LOC: ENTRNSPT 08-28 13:53 → EDTRNSPTSTS 08-28 13:57
PROVIDERS: Nurse Practitioner Family; ADMIT Physical Medicine & Rehabilitation
PROC: 5A09357 Assistance with Respiratory Ventilation, Less than 24 Consecutive Hours, Continuous Positive Airway Pressure (ICD-10-PCS; principal; 2018-08-21)
PROC: 5A09357 Assistance with Respiratory Ventilation, Less than 24 Consecutive Hours, Continuous Positive Airway Pressure (ICD-10-PCS; 2018-08-22)
PROC: 5A09357 Assistance with Respiratory Ventilation, Less than 24 Consecutive Hours, Continuous Positive Airway Pressure (ICD-10-PCS; 2018-08-23)
DX: I11.0 Hypertensive heart disease with heart failure (principal); J96.21 Acute and chronic respiratory failure with hypoxia; J44.1 Chronic obstructive pulmonary disease with (acute) exacerbation; C90.00 Multiple myeloma not having achieved remission; I50.33 Acute on chronic diastolic (congestive) heart failure; E11.9 Type 2 diabetes mellitus without complications; E03.9 Hypothyroidism, unspecified; G31.84 Mild cognitive impairment of uncertain or unknown etiology; F41.8 Other specified anxiety disorders; R53.81 Other malaise; I95.9 Hypotension, unspecified; J10.1 Influenza due to other identified influenza virus with other respiratory manifestations; G47.33 Obstructive sleep apnea (adult) (pediatric); I27.22 Pulmonary hypertension due to left heart disease; Z85.3 Personal history of malignant neoplasm of breast; Z92.3 Personal history of irradiation; Z88.2 Allergy status to sulfonamides; Z87.891 Personal history of nicotine dependence
CPT/HCPCS: 10112

== ENCOUNTER 2020-02-11 19:56 | Inpatient (IN) | payer OTHER ==
[~2020-02-11] VITALS: Ht 154.9 cm; Wt 88.0 kg
[2020-02-11 19:56] VITALS: BP 132/50
[~2020-02-11 19:56] MED LIST changes: +DILTIAZEM 24HR180 M1 PO; +HYDRALAZINE 10M10 MG PO; +LEVOXYL88 MCG PO; +PROBIOTIC1 EAC1 PO; -SYNTHROID88 MCG PO
[2020-02-11 20:19] LABS: URINE BILIRUBIN NEGATIVE (Negative); URINE BLOOD TRACE (Negative); URINE COLOR YELLOW; URINE GLUCOSE-RANDOM* NEGATIVE (Negative); URINE KETONES NEGATIVE (Negative); URINE PROTEIN (DIPSTICK) TRACE (Negative); URINE UROBILINOGEN 0.2 E.U./dl (0.2-1.0)
[2020-02-11 20:20] LABS: URINE CLARITY CLOUDY; URINE LEUKOCYTES-REFLEX 3+ (Negative); URINE NITRITE-REFLEX POSITIVE (Negative)
[2020-02-11 20:22] LABS: SQUAMOUS 0-3 Few /LPF (0-3)
[2020-02-11 20:23] LABS: BACTERIA-REFLEX >30 Many /HPF (None Seen); CASTS None Seen /LPF (None Seen); CRYSTALS None Seen /LPF (None Seen); URINE RBC 0-2 Rare /HPF (0-2); URINE WBC-REFLEX >25 Many /HPF (0-5)
[2020-02-11 21:26] LABS: ANION GAP 7 mmol/L (7-16); BUN 16 mg/dL (7-18); CALCIUM 8.3 mg/dL (8.5-10.1); CHLORIDE 103 mmol/L (98-107); CO2 29 mmol/L (21-32); GLUCOSE 98 mg/dL (74-106); POTASSIUM 3.5 mmol/L (3.5-5.1); SODIUM 139 mmol/L (136-145)
[2020-02-11 21:27] LABS: HEMATOCRIT 31.1 % (37.0-47.0); HEMOGLOBIN 10.1 gm/dL (12.0-15.0); MCH 26.9 pg (26.0-34.0); MCHC 32.6 g/dL (28.0-37.0); MCV 82.3 fL (80.0-100.0); PLATELET COUNT 184 thou/uL (150-400); RBC 3.78 mil/uL (4.20-5.00); RDW 17.3 % (10.5-14.5); WBC 5.5 thou/uL (4.0-11.0)
[2020-02-11 21:36] LABS: ALBUMIN 2.9 g/dL (3.4-5.0); SGOT 12 U/L (15-37); SGPT 21 U/L (30-65); TOTAL BILIRUBIN 0.4 mg/dL (0.2-1.0); TOTAL PROTEIN 5.7 g/dL (6.4-8.2); TROPONIN-I <0.06 ng/mL (<0.06)
[2020-02-11 21:54] LABS: ABSOLUTE NEUTROPHILS 2.6 thou/uL (1.4-8.2); ANISOCYTOSIS 1+
[2020-02-11 21:55] LABS: LARGE PLATELETS RARE; POLYCHROMASIA OCCASIONAL
--- NOTE | 2020-02-11 22:04 | NUR ---
PROVIDER AWARE OF INTERACTION BETWEEN CEFTRIAXONE AND PCN. BENEFITS OUTWEIGH RISKS
[2020-02-11 22:12] VITALS: BP 128/46
[2020-02-11] MEDS ORDERED: HYDRALAZINE 5050 MG PO (22:25)
[2020-02-11 23:43] VITALS: BP 115/51
[2020-02-12 00:13] VITALS: BP 146/62
--- NOTE | 2020-02-12 01:40 | NUR ---
PT ARRIVED FROM THE ER THIS SHIFT. A&OX4 DUE TO WEAKNESS. ADMISSION DONE AND PT ORIENTED TO THE UNIT. CHEST PORT INTACT ACCESS DONE IN ER. PT UP WITH ASSIST TO THE BSC. SCD'S IN PLACE. PT ON 3L OF O2 BASELINE AT LINE. FALL PREC IN PLACE AND WILL CONT TO MONITOR.
[2020-02-12 04:09] VITALS: BP 141/50
[2020-02-12 05:28] LABS: HEMATOCRIT 33.5 % (37.0-47.0); HEMOGLOBIN 10.8 gm/dL (12.0-15.0); MCHC 32.2 g/dL (28.0-37.0); MCV 83.8 fL (80.0-100.0); RDW 18.2 % (10.5-14.5); WBC 4.6 thou/uL (4.0-11.0)
[2020-02-12 05:50] LABS: CALCIUM 8.2 mg/dL (8.5-10.1); CREATININE 0.9 mg/dL (0.6-1.0); MAGNESIUM 1.8 mg/dL (1.8-2.4); POTASSIUM 4.2 mmol/L (3.5-5.1)
[2020-02-12 07:20] VITALS: BP 124/62; BP 138/67; BP 97/65
--- NOTE | 2020-02-12 11:37 | EKG ---
[facility] [place] [address] ELECTROCARDIOGRAM REPORT Name: JAY CORTES Room #: 438-P ADM IN M.R.#: [id number] Admission: 02/11/20 Attend Phys: Carlos Keyes MD Discharge: Date of : 41 Report #: [id number] THIS REPORT FOR: cc: Kelsi Vargas MD, Linda MD Lundgren,Denzel Shields MD [facility] ~ THIS REPORT FOR: //name// [facility] ED Test Date: 2020-02-11 Test Time: 20:35:49 Pat Name: JAY CORTES Department: Room: [facility] Gender: F Cosmetic Manager: MEE : 1945 Requested By: Beckie Chin Order Number: [id number] MD: Denzel Musa Measurements Intervals [place] Rate: 72 P: 52 [place]: 163 QRS: 7 QRSD: 92 T: 51 QT: 418 QTc: 458 Interpretive Statements Sinus rhythm Normal tracing Compared to ECG 08/19/2018 07:26:37 No significant change was found Electronically Signed On 02-12-2020 11:37:16 CDT by Denzel Musa [email or web address] <ELECTRONICALLY SIGNED> By: Denzel Musa MD, [facility] 02/12/20 1137 34 34 Denzel Musa MD, [facility] /EPI
[2020-02-12 16:13] VITALS: BP 136/52
[2020-02-12] MEDS ORDERED: LISINOPRIL2.5 MG PO (16:15)
--- NOTE | 2020-02-12 16:17 | NUR ---
Assumed care of pt at 070. Pt a&ox4. States she wants to restart ms contin and xanax as she takes them at home. Provider notified and althea markham noted. Pt's son brought pt's cancer meds from home. Sent to pharmacy for verification and administered. Pt has chest port. IV team was paged and notified. Cpap at hs. Up SBA with gait-belt and walker. PT/OT saw patient. IVF and IV antibiotics infusing. Call light within reach. Fall precautions in place. Will continue to monitor.
[2020-02-12 19:28] VITALS: BP 144/55
--- NOTE | 2020-02-13 00:26 | NUR ---
ASSESSED AT START OF SHIFT. PT A&O4. EVENING MEDS GIVEN AND PT MERLENE IT WELL. CHEST PORT INTACT WITH IVF. PT UP WITH ASSIST TO BSC. HAD SOME INCONTINENT AT START OF SHIFT. ON 2L OF O2 AND WEARS CPAP AT NIGHT. FALL PREC IN PLACE AND CALL LIGHT IN REACH WILL CONT TO MONITOR.
[2020-02-13 01:05] LABS: GLYCOHEMOGLOBIN (HGB A1C) 6.1 % (4.8-5.6)
[2020-02-13 05:53] VITALS: BP 138/64
[2020-02-13 07:05] VITALS: BP 110/87
--- NOTE | 2020-02-13 12:38 | NUR ---
PT CARE ASSUMED AT 0700. A&Ox4. PT UP TO THE BATHROOM TO CLEAN UP AND USE TOILET. SMALL SUPERFICIAL OPENING ON THE SACRUM THAT WILL SPOT BLEED WHEN WIPING. ON 3L DURING THE DAY AND BIPAP AT NIGHT. ON HOME OXYGEN. IV PORT PATENT WITH NO REDNESS OR EDEMA, FLUIDS INFUSING. DAILY WEIGHT(CHF HISTORY). [facility] WITH NO COVERAGE NEEDED DURING THIS SHIFT. HOME MEDS IN IV BIN. URINE BACK WITH E.COLI. INFORMED NO ORDERS GIVEN. FALL PROTOCOL IN PLACE. CALL LIGHT IN PLACE. WILL CONTINUE TO MONITOR.
[2020-02-13 16:00] VITALS: BP 133/52
[2020-02-13 19:05] VITALS: BP 155/65
[2020-02-14 04:58] VITALS: BP 135/61
--- NOTE | 2020-02-14 06:32 | NUR ---
ASSESSMENT COMPLETED. PT GETS UP WELL WITH SBA TO THE BSC. PT IS SOMETIMES INCONTINENT. USES CPAP AT NOC @3L. SOME LOG FEEDER COUGH NOTED INTERMITTENTLY THRO THE NOC.GIVEN SCHEDULED RT TREATMENTS. SHE DENIES PAIN. TAKES MEDS WHOLE WITH WATER-NO ISSUES.SUGARS STABLE. CONTINUES ON ABT FOR UTI.PT HAS BEEN CALM AND RESTING WELL THRO THE NOC. SHE MAKES NEEDS KNOWN. FALL PREC IN PLACE.
[2020-02-14 07:40] VITALS: BP 120/46
--- NOTE | 2020-02-14 12:49 | NUR ---
PT CARE ASSUMED AT 0700. A&Ox4. PT REQUESTED A SHOWER TODAY. GIVEN. OT/PT/RT ON BOARD. CPAP AT NIGHT ON 3.0L NC DURING TH EDAY. STEPHON CATH PATENT WITH NO REDNESS OR EDEMA, FLUIDS INFUSING. PT WOULD LIKE TO HAVE MORE HOMEHEALTH SERVICES WHEN DISCHARGING THEN THE 3 DAYS A WEEK THAT SHE CURRENTLY RECEIVES. UP TO THE BEDSIDE COMMODE. HOME MEDS IN THE IV BIN. PER DR. COATES PT IS POTENT. DC TOMORROW. FALL PROTOCOL IN PLACE. CALL LIGHT IN REACH. WILL CONTINUE TO MONITOR.
[2020-02-14 15:37] VITALS: BP 142/62
[2020-02-14 20:26] VITALS: BP 124/50
--- NOTE | 2020-02-15 02:18 | NUR ---
Assumed care on 02/14/20 @ 19:30, toileting self with urine output noted. VSS, Chest port intact, IV antibiotics and IVF running as ordered. Incontinent of urine x1, bedding and gown linnen change provided. CPAP @ NOC @ 3L. Resting in bed with eyes closed. Fall precautions in place, will continue to monitor as per protocol for patient safety and comfort.
[2020-02-15 04:32] VITALS: BP 118/54
[2020-02-15 08:35] VITALS: BP 161/68
--- NOTE | 2020-02-15 11:20 | NUR ---
Assumed care of pt at 0700. Pt a&ox4. IVF and IV antibiotics infusing. SBA with gait-belt and walker. Pain controlled with scheduled meds. Possibly home with home health tomorrow. 3L O2. Call light within reach. Fall precautions in place. Will continue to monitor.
--- NOTE | 2020-02-15 12:05 | NUR ---
ASSESSMENT: CM REVIEWED CHART AND MET WITH PATIENT. PT IS ALERT AND ORIENTED X4. PT WAS ADMITTED DUE TO UTI AND IS CURRENTLY ON IV ANBX. PT REPORTS LIVING IN AN APT ALONE. PT STATES THAT SHE HAS A CAREGIVER THAT COMES EVERY FRIDAY AND FRIDAY FOR 2.5 HOURS TO HELP ASSIST HER. SHE REPORTS SHE HAS NO STEPS TO ENTER OR ONCE INSIDE. PT STATES SHE HAS A FWW, ROLLATER WALKER, BEDSIDE COMMODE, AND GRAB BAR. PT REPORTS SHE IS ON 3L OXYGEN THROUGHOUT THE DAY SUPPLIED THROUGH [employer] AND WEARS A CPAP AT BEDTIME. PT STATES SHE WAS IN SERVICE WITH [facility] BUT THEY DISCHARGED HER RECENTLY. PT REPORTS SHE WANTS TO USE ANOTHER HH COMPANY THIS COMPANY SWITCHES STAFF TOO OFTEN. [facility] WAS CONSULTED FOR PATIENT BUT SHE IS DOING WELL AND RECOMMENDING HOME WITH HH. PT REPORTS NO PREFERENCE OF HH COMPANY BUT DOES NOT WANT [facility]. CM FAXED REFERRAL TO [facility]. CM ALSO SPOKE WITH PATIENTS PRIYANKA RIVERA TO UPDATE. PT WILL REMAIN ON IV ANBX FOR ANOTHER DAY AND WILL SEE IF PT IS AFEBRILE THEN MAY POSSIBLY DISCHARGE TOMORROW. CM WILL CONTINUE TO FOLLOW TO ASSIST NEEDED.
[2020-02-15 16:10] VITALS: BP 165/58
[2020-02-15 19:05] VITALS: BP 151/94
--- NOTE | 2020-02-16 03:08 | NUR ---
ASSUMED PT CARE AT 1900.PT C/O PAIN ON GENARO BLE,MANAGED WITH MED.PT UP WITH ASSIST X1 TO BSC.PT VERY ANXIOUS AT HS,SHE REQUESTED FOR AND RECEIVED XANAX.PT AFRAID OF BEING INCONTINENT WHILE ASLEEP,BRIEFS ON.PT SLEEPING WITH HER CPAP AT THIS TIME.BG MONITORED AT HS NO COVERAGE NEEDED.SCD IN PLACE ON HER BLE.FALL PRECAUTIONS IN PLACE,CALL LIGHT WITHIN REACH.
[2020-02-16 06:27] VITALS: BP 147/67
[2020-02-16 07:40] VITALS: BP 155/75
[2020-02-16 08:40] VITALS: BP 155/75
[2020-02-16] MEDS ORDERED: CIPRO500 M1 PO (12:11)
--- NOTE | 2020-02-16 12:57 | NUR ---
on-going assessment: PT HAS ORDERS TO DISCHARGE HOME TODAY WITH HOME HEALTH ([facility] HAS ACCEPTED PT). PT REPORTS SHE WAS IN SERVICE WITH [facility] BEFORE ADMISSION AND WAS NOT DISCHARGED BUT NO LONGER WISHES TO USE THAT COMPANY. CM CONTACTED [facility] AND LEFT VM WITH BENNIE THAT PATIENT REQUEST TO BE DISCHARGED AND GO WITH [facility]. CM NOTIFIED SEVEN AT [facility] THAT WE REQUESTED [facility] DISCHARGE HER AND CM FAXED ORDERS/SUMMARY TO [facility] AND NOTIFIED OF DISCHARGE TODAY. PT REPORTS THAT HER SON IS GOING TO COME PICK HER UP AFTER WORK. PT REPORTS NO FURTHER NEEDS FROM .
--- NOTE | 2020-02-16 16:54 | NUR ---
Assumed care of pt. at 0700. Pt. was calm and cooperative. Pt. was excited for discharge. Pt. had port-a-cath discontinued before discharge with saline/heparin protocol. Pt. left with all belongings and son in wheelchair.
== END 2020-02-16 16:45 | disposition home health service (06) | DRG 689 ==
LOC: ER 19:56 → 4S 22:02 → EROBS 22:02 → 4S 23:43
PROVIDERS: Nurse Practitioner Family; Physician Assistant; ADMIT Hospitalist; ATTEND Hospitalist
PROC: 5A09357 Assistance with Respiratory Ventilation, Less than 24 Consecutive Hours, Continuous Positive Airway Pressure (ICD-10-PCS; principal; 2020-02-12)
PROC: 5A09357 Assistance with Respiratory Ventilation, Less than 24 Consecutive Hours, Continuous Positive Airway Pressure (ICD-10-PCS; 2020-02-13)
PROC: 5A09357 Assistance with Respiratory Ventilation, Less than 24 Consecutive Hours, Continuous Positive Airway Pressure (ICD-10-PCS; 2020-02-14)
PROC: 5A09357 Assistance with Respiratory Ventilation, Less than 24 Consecutive Hours, Continuous Positive Airway Pressure (ICD-10-PCS; 2020-02-15)
DX: N39.0 Urinary tract infection, site not specified (principal); G92 Toxic encephalopathy; J96.11 Chronic respiratory failure with hypoxia; I48.20 Chronic atrial fibrillation, unspecified; C90.00 Multiple myeloma not having achieved remission; R91.1 Solitary pulmonary nodule; E03.9 Hypothyroidism, unspecified; E11.9 Type 2 diabetes mellitus without complications; G47.33 Obstructive sleep apnea (adult) (pediatric); M19.90 Unspecified osteoarthritis, unspecified site; Z60.2 Problems related to living alone; G47.00 Insomnia, unspecified; K21.9 Gastro-esophageal reflux disease without esophagitis; I27.20 Pulmonary hypertension, unspecified; I11.0 Hypertensive heart disease with heart failure; I50.9 Heart failure, unspecified; J44.9 Chronic obstructive pulmonary disease, unspecified; Z88.6 Allergy status to analgesic agent; Z88.1 Allergy status to other antibiotic agents; Z88.0 Allergy status to penicillin; Z88.2 Allergy status to sulfonamides; Z88.8 Allergy status to other drugs, medicaments and biological substances; Z91.040 Latex allergy status; Z99.81 Dependence on supplemental oxygen; Z85.3 Personal history of malignant neoplasm of breast; Z92.21 Personal history of antineoplastic chemotherapy; Z92.3 Personal history of irradiation; Z87.891 Personal history of nicotine dependence
CPT/HCPCS: 10195

== ENCOUNTER 2021-07-02 12:07 | Emergency (ER) | payer OTHER ==
[~2021-07-02] VITALS: Ht 157.5 cm; Wt 94.8 kg
--- NOTE | ~2021-07-02 | EMS ---
[facility] [address] [place] [address] EMS Patient Care Report Name: JAY CORTES Room #: DEP JEFF Garcia#: [id number] Admission: 07/02/21 Attend Phys: Discharge: 07/02/21 Date of : 41 Report #: [id number] THIS REPORT FOR: //name// Report Transmitted: 07/05/2021 10:52 EMS Care Summary [place], [place]/[facility] Incident [id number] @ 07/02/2021 11:29 Incident Location [address] [facility] [address] Patient JAY CORTES Female, 75 Years 1945 Patient Address [address] [facility] [address] [place] [address] Patient History Other,Diabetes,Hypertension (HTN),Chronic Kidney Disease,Cellulitis, Patient Allergies Latex allergy,Penicillin allergy, Patient Medications Other, Chief Complaint Weakness Disposition Transported No Lights/[place] Dispatch Reason Sick Person Transported To [facility] Narrative Pt stated she woke friday night feeling weak and per Pt "It took me more time then usual to get out of bed". Pt stated this morning she still feel's week and needed a little help to get up and get going this morning. Pt stated she wanted [facility] [address] [place] [address] EMS Patient Care Report Name: JAY CORTES Room #: DEP Jose#: [id number] Admission: 07/02/21 Attend Phys: Discharge: 07/02/21 Date of : 41 Report #: [id number] to go to [facility] ER to get checked for Covid or if she might be coming down with the flu. Pt stated she has nore sore throat , no body aches and no other complaints noted only just weakness. Pt is a GCS 15 with no other complaints noted. Pt found sitting in a chair in her apartment with her son, Pt is with no other signs of distress. Pt is wanting to be transported to ER for evaluation and get a text for Covid since she is feeling weak. Pt is with no other signs of distress or flu like signs and symptoms and is a GCS 15. Pt is received by RN in ER. Initial Vitals @11:57P: 98,R: 18,BP: 144/82,Pain: 0/10,GCS: 15,Glucose: 126,Revised Trauma: 12, @12:01P: 88,R: 18,Pain: 0/10,GCS: 15,Revised Trauma: 12, Assessments @11:39MENTAL:Event Oriented,Place Oriented,Time Oriented,Person Oriented,SKIN:HEENT:Head/Face: No Abnormalities,Neck/Airway: No Abnormalities,LUNG SOUNDS:General: No Abnormalities,ABDOMEN:General: No Abnormalities,PELVIS//GI:No Abnormalities,EXTREMITIES:Capillary Refill: Right Upper: < 2 Sec,Left Arm: No Abnormalities,Right Arm: No Abnormalities,Left Leg: No Abnormalities,Right Leg: No Abnormalities,PULSE:Radial: 2+ Normal,NEURO:No Abnormalities,@12:02MENTAL:Person Oriented,Place Oriented,Time Oriented,Event Oriented,SKIN:HEENT:Head/Face: No Abnormalities,Neck/Airway: No Abnormalities,LUNG SOUNDS:General: No Abnormalities,ABDOMEN:General: No Abnormalities,PELVIS//GI:No Abnormalities,EXTREMITIES:Capillary Refill: Left Upper: < 2 Sec,Left Arm: No Abnormalities,Right Arm: No Abnormalities,Left Leg: No Abnormalities,Right Leg: No Abnormalities,PULSE:Radial: 2+ Normal,NEURO:No Abnormalities, Impression Generalized Weakness Procedures @11:39 ALS Assessment Response: UnchangedSucceeded Timeline 11:,Call Received :,Dispatch Notified 11:29,Dispatched 11:31,En Route 11:36,On Scene 11:39,At Patient 11:39,ALS Assessment,Response: UnchangedSucceeded, 11:55,Depart Scene [address] [address] EMS Patient Care Report Name: JAY CORTES Room #: DEP JEFF Garcia#: [id number] Admission: 07/02/21 Attend Phys: Discharge: 07/02/21 Date of : 41 Report #: [id number] 11:57,BP: 144/82 M,PULSE: 98,RR: 18 R,SPO2: Ox,ETCO2: ,B,PAIN: 0,GCS: 15, 12:01,BP: 144/ M,PULSE: 88,RR: 18 R,SPO2: Ox,ETCO2: ,BG: ,PAIN: 0,GCS: 15, 12:03,At Destination 12:16,Call Closed Disclaimer v1.1 Copyright 2021 [employer] This EMS Care Summary contains data elements from the applicable legal record (which may be displayed differently). It is designed to provide pertinent information for the following purposes: continuity of care, clinical quality, and state data reporting. The complete legal record is available to ED staff and administrators of the receiving hospital in [employer]'s Patient Tracker. All data is provided "as is."
[~2021-07-02 12:07] MED LIST changes: +CIPRO500 M1 PO
[2021-07-02 12:14] VITALS: BP 115/61
== END 2021-07-02 15:15 | disposition home or self-care (01) ==
LOC: ER 12:07
DX: U07.1 COVID-19 (principal); I11.0 Hypertensive heart disease with heart failure; I50.9 Heart failure, unspecified; J44.9 Chronic obstructive pulmonary disease, unspecified; E11.9 Type 2 diabetes mellitus without complications; Z85.3 Personal history of malignant neoplasm of breast; Z79.51 Long term (current) use of inhaled steroids; Z79.82 Long term (current) use of aspirin; Z79.84 Long term (current) use of oral hypoglycemic drugs; Z79.899 Other long term (current) drug therapy; Z88.2 Allergy status to sulfonamides; Z88.0 Allergy status to penicillin; Z88.5 Allergy status to narcotic agent; Z88.6 Allergy status to analgesic agent; Z91.040 Latex allergy status; Z87.891 Personal history of nicotine dependence